=== PATIENT | male | born 1995 | race Caucasian/White ===

== ENCOUNTER 2020-07-21 18:37 | Emergency (ER) | payer OTHER ==
[~2020-07-21] VITALS: Ht 175.3 cm; Wt 75.0 kg
[2020-07-21] MEDS ORDERED: LIDOCAINE 1% MDV 20ML VIAL INFIL ONE (19:45)
--- NOTE | 2020-07-21 19:59 | REP ---
INDICATION: L index finger laceration, r/o fx COMPARISON: None. TECHNIQUE: Four views left 2nd digit. FINDINGS: There is no evidence of acute fracture, dislocation, or intrinsic bone disease.No radiopaque foreign body is seen. IMPRESSION: No fracture or dislocation. <Electronically signed by Morgan Bella > 07/21/[id number]
[2020-07-21] MEDS ORDERED: NEOSPORIN OINT 0.9 GM PKT TOP ONE (20:45)
[2020-07-21 20:56] VITALS: BP 152/65
== END 2020-07-21 20:57 | disposition home or self-care (01) ==
LOC: M ED 18:37
DX: S61.211A Laceration without foreign body of left index finger without damage to nail, initial encounter (principal); W26.8XXA Contact with other sharp object(s), not elsewhere classified, initial encounter; Y92.018 Other place in single-family (private) house as the place of occurrence of the external cause; Z88.0 Allergy status to penicillin; F17.210 Nicotine dependence, cigarettes, uncomplicated